=== PATIENT | male | born 1960 | race Hispanic/Latino ===

== ENCOUNTER → 2023-09-08 | Outpatient (CLI) | payer BC | END | disposition home or self-care (01) | LOC: SHCH 13:22 | PROVIDERS: ATTEND Internal Medicine Cardiovascular Disease | DX: I51.7 Cardiomegaly (principal); R94.31 Abnormal electrocardiogram [ECG] [EKG] | CPT/HCPCS: 93306 ==

== ENCOUNTER → 2024-09-03 | Outpatient (CLI) | payer BC ==
[~2024-09-03] MED LIST: ASPI-1443 PO; DULA1.5P SQ; EVOL140P3 SQ; METF-446 PO; METO-408 PO; ROSU40 PO; metoPROLOL tartRATE 1 MG/ML 5ML VIAL IV ONE
--- NOTE | 2024-09-03 14:18 | HMCIMG ---
CT CARDIAC ANGIO W/CONT. CCTA HISTORY: Chest pain COMPARISON: None TECHNIQUE: Multiple sequential axial images of the chest were obtained along with the CT angiogram of the chest study. Patient was given 100 cc of Omnipaque through intravenous route. FINDINGS: There is no evidence of pulmonary nodule or parenchymal disease. No pleural effusion or pericardial effusion is seen. There is no evidence of pneumothorax. There are normal size mediastinal and hilar lymph nodes. The heart is not enlarged. Degenerative changes of the thoracolumbar spine are present. IMPRESSION: 1. No evidence of pulmonary nodule or effusion is seen. Please see CT angiogram report of coronary arteries.
--- NOTE | 2024-09-05 08:27 | CARDIOLOGY ---
RAD REPORT: [facility] CT ANGIO RADIOLOGY REPORT: CORONARY CT ANGIOGRAPHY DATE: Sep 03, 2024 QUALITY: Excellent CLINICAL HISTORY AND INDICATION: [Elevated CACs 1,577 ] TECHNIQUE: After obtaining a preliminary district scout executive image, contrast imaging performed on an [employer] [id number] scanner. A dedicated, limited window, coronary imaging protocol was used, with single breath-hold, retrospective ECG gating, and automated arrhythmia rejection. 100 cc of low osmolar contrast agent: Omnipaque 350 was delivered via a 18-gauge IV catheter in the right antecubital fossa, using a power injector and followed by 60 cc of normal saline bolus as a chaser. Collimated images were reformatted at 0.5 mm intervals, and sent to an offline independent workstation for interpretation, using 3D anatomic reconstructions: Curved multiplanar reconstructions, maximum intensity projections, and multiplanar imaging. 20 mg IV metoprolol was administered prior to scanning. 0.8 mg SL nitroglycerin was given. CORONARY ARTERY DESCRIPTIONS: The coronary arteries arise in normal position. Left main coronary artery: Normal caliber vessel that bifurcates into the LAD and LCx. There is mixed calcified and noncalcified plaque in the distal left main with 50-60% stenosis. Left anterior descending coronary artery: Normal caliber vessel and gives rise to diagonal and septal branches. There is mixed calcified and noncalcified plaque in the ostial to mid LAD with 70-80% stenosis. Left circumflex coronary artery: Normal caliber, nondominant and gives rise to a large OM branch. There is mixed calcified and noncalcified plaque in the ostial LCx with 70-80% stenosis. There is calcified plaque in the proximal OM 1 with 20-30% stenosis. Right coronary artery: Large, dominant vessel giving rise to the PL and PDA branches. There is calcified plaque in the ostial RCA with 20-30% stenosis. There is calcified plaque in the proximal RCA with 50-60% stenosis. CAD-RADs: 4B, multivessel obstructive CAD, including distal left main. Thoracic Aorta: Normal diameter. Ruthann Lakhani MD Cardiovascular Disease [facility] RUTHANN LAKHANI MD Sep 05, 2024 08:27
== END | disposition home or self-care (01) ==
LOC: RAH 07-31 08:07
PROVIDERS: ATTEND Internal Medicine Cardiovascular Disease
DX: R07.9 Chest pain, unspecified (principal); M47.815 Spondylosis without myelopathy or radiculopathy, thoracolumbar region
CPT/HCPCS: 75574; J3490

== ENCOUNTER 2024-10-08 06:39 | Day surgery (SDC) | payer BC ==
--- NOTE | 2024-10-05 10:45 | EKG ---
[facility] Test Date: 2024-10-05 Test Time: 10:38:50 Pat Name: SEBASTIAN HOGAN Department: [facility] Room: Gender: M First Officer: [id number] : 1960 Requested By: JEROME CALDWELL Order Number: [id number] Reading MD: Jerome Caldwell Measurements Intervals [place] Rate: 95 P: 73 NE: 145 QRS: 64 QRSD: 76 T: 9 QT: 342 QTc: 432 Interpretive Statements Sinus rhythm Probable left atrial enlargement No previous ECG available for comparison Electronically Signed On 10-07-2024 23:58:30 CDT by Jerome Caldwell Please click the below link to view image of tracing.
[2024-10-05 10:50] LABS: IMMATURE GRANULOCYTE ABSOLUTE 0.02 K/uL (0-1); NUCLEATED RED BLOOD CELLS 0.0 % (0.0-0.19); PLATELET COUNT (AUTO) 215 K/uL (130-400); RED BLOOD CELL COUNT(AUTO) 5.35 MIL/uL (4.50-6.20); RED CELL DISTRIBUTION WIDTH 12.8 % (11.0-15.5); WHITE BLOOD COUNT (AUTO) 7.6 K/uL (4.8-10.8)
[2024-10-05 10:56] LABS: CREATININE 0.9 mg/dL (0.5-1.3); GLOMERULAR FILTR. RATE CALC 95.0 mL/min (>90); GLUCOSE,RANDOM 303.0 mg/dL (70-105); SODIUM SERUM 141.0 mmol/L (136-145); UREA NITROGEN, BLOOD 24.0 mg/dL (7-18)
[2024-10-05 11:00] VITALS: BP 132/66; PULSE 98; RESP 18; TEMP 97.7
[2024-10-05 11:01] LABS: INR 0.97 (0.85-1.15)
--- NOTE | 2024-10-05 12:03 | HMCIMG ---
CHEST 1VW REASON: PRE OP COMPARISON: None. FINDINGS: Single view of the chest was obtained. Lungs are clear. Heart size is normal. There is no pulmonary vascular congestion. Mediastinum and bony thorax appear unremarkable. IMPRESSION: 1. Normal single view chest x-ray.
[2024-10-08] VITALS (10 sets, daily range): BP systolic 101–148; BP diastolic 60–81; PULSE 74–86; RESP 11–17; TEMP 98.1
[~2024-10-08] VITALS: Ht 180.3 cm; Wt 94.9 kg
[~2024-10-08 06:39] MED LIST changes: -metoPROLOL tartRATE 1 MG/ML 5ML VIAL IV ONE
[2024-10-08] MEDS: 0.9%NACL 1000ML 1,000 ML IV SCH (06:43)
[2024-10-08 07:37] LABS: APPEARANCE,URINE CLEAR (CLEAR); GLUCOSE, URINE (UA) >=1000 mg/dL (NEGATIVE); LEUKOCYTE ESTERASE ,URINE NEGATIVE Leu/uL (NEGATIVE); NITRATE,URINE NEGATIVE (NEGATIVE); OCCULT BLOOD,URINE NEGATIVE (NEGATIVE)
[2024-10-08 07:46] LABS: ADD UA MICROSCOPIC YES
[2024-10-08] MEDS ORDERED: LIDOCAINE HCL 400MG/20ML VIAL ONE (09:56)
[2024-10-08] MEDS ORDERED: NITROGLYCERIN 50MG VIAL ONE (09:57)
[2024-10-08] MEDS ORDERED: IOHEXOL 350 MG/ML 100ML INFUS..BTL IV ONE (09:57)
[2024-10-08] MEDS ORDERED: HEParin-NS 1,000 UNIT/500 ML 1,000 ML IV ONE (09:57)
[2024-10-08] MEDS ORDERED: MIDAZOLAM HCL 1 MG/ML 2ML VIAL ONE ×2 (10:31→11:57)
[2024-10-08] MEDS ORDERED: HEParin-NS 1,000 UNIT/500 ML 500 ML IV ONE (11:20)
[2024-10-08] MEDS ORDERED: DEXTROSE 50%-WATER 50 ML DISP.SYRIN IV PRN (13:00)
[2024-10-08] MEDS ORDERED: 0.9%NACL 1000ML 1,000 ML IV SCH (13:00)
[2024-10-08] MEDS ORDERED: GLUCAGON 1MG KIT 1 MG ML IM PRN (13:00)
--- NOTE | 2024-10-08 13:39 | NUR ---
Right Femoral site and Right Radial VASC band site both clean and dry. No sign of bruising, bleeding or hematoma. Educated Patient and on POC and expectations of safety post catherization. Right arm secure on pillow and Right leg straight. Radial and Pedal pulses intact. at bedside appearing supportive. Dr. Caldwell spoke at length to Patient and Family. All questions answered. CD provided to . Heart healthy diet ordered and water provided. NS at 100 mls/hr to patent PIV to left hand. Call light in reach. Reported off in full to oncoming RNPankaj.
--- NOTE | 2024-10-08 15:27 | PRN ---
PROCEDURE NOTE Indications: 1. Chest pain 2. High calcium score (1577) 3. Abnormal coronary CTA done on 09/03/2024 (60% stenosis in the distal left main, 70-80% stenosis in the ostial, proximal, and mid LAD, 70-80% stenosis in the ostial LCX and 50-60% stenosis in the proximal RCA) 4. DM2 5. HTN 6. HLP Procedures: LHC, coronary angiogram, IFR of the LAD, IVUS of the left main Introduction: After informed written consent was obtained, the patient was brought to the Catheterization Lab in the usual fasting state. Following sterile prep and drape, a time out was performed, then moderate sedation was administered, 1mg of Versed and 50mcg of Fentanyl, then 1% Lidocaine was infiltrated into the right wrist. Using a Modified Seldinger technique, a 6Fr Sheath was inserted into the right radial artery. Despite using multiple guides, we were unable to cannulate the left main. So the decision was made to perform the procedure via the right common femoral artery. The patient was readministered 1 mg of Versed and 50mcg of Fentanyl, then 1% lidocaine was infiltrated into the right groin. Using a modified Seldinger technique a 6Fr sheath was inserted into the right common femoral artery. While under fluoroscopic guidance, diagnostic coronary catheters were advanced over a wire into the central circulation where they were aspirated, flushed and placed to pressure monitoring, once the wire was removed. Coronary Angio: The left and right coronary arteries were engaged with appropriate catheters and angiography was performed under continuous pressure monitoring. Left Heart Catheterization: A JR4 catheter was inserted into the LV and the pressure was recorded, then the catheter was removed from the LV. Cardiac Findings: Right dominant system LM: Large caliber vessel with 70% stenosis in the distal left main. The vessel bifurcates into the LAD and LCX. LAD: Medium caliber vessel with diffuse 80% stenosis in the proximal and mid LAD. ALFREDO 3 blood flow. Diagonal 1: Small caliber vessel with mild luminal irregularities Diagonal 2: Medium caliber vessel with 80% stenosis in the ostial segment of the vessel LCx: Medium caliber vessel with 50% stenosis in the ostial LCX. OM1: Small caliber vessel with mild luminal irregularities. OM2: Medium caliber vessel with mild luminal irregularities RCA: Medium caliber vessel with 40% stenosis in the proximal RCA. The rest of the vessel has mild luminal irregularities. RPDA: Small caliber vessel with mild luminal irregularities. RPLV: Small caliber vessel with 30% stenosis in the proximal segment of the vessel LVEDP: 4mmHg Medications given: Versed 3mg, Fentanyl 100mcg, nicardipine 600mcg, nitroglycerin 400mcg, Heparin 8000units Coronary Intervention: Guide catheter: JL 3.5, other guides ([place], XB 3.5, Q3.5) Guidewire: iFR wire After reviewing the above-mentioned findings the decision was made to further evaluate the LAD. A JL 3.5 guide catheter was advanced to the ostium of the left main. We then advanced a IFR wire outside of the guide and normalized the pressures. We then advanced the IFR wire to the distal LAD and performed hemodynamic assessment. The stenosis in the proximal and mid LAD was deemed to be hemodynamically significant, IFR 0.80. We then advanced an IVUS catheter into the proximal LAD and performed IVUS of the proximal LAD, proximal, mid, and distal left main. IVUS revealed diffuse 70% stenosis in the distal left main and significant stenosis in the proximal LAD. The IFR wire and JL 3.5 guide catheter were then removed. The patient tolerated the procedure well and without issue. Complications: None Conscious Sedation Monitoring: Under my direct order and supervision, medication for moderate conscious sedation was administered by the nursing staff and the patients level of con sciousness and physiological status was monitored by an independent trained nurse. Closure of Access Site: After the case completed the sheath was pulled and a 6Fr Angioseal was deployed in the right common femoral artery without complication. Additionally the sheath in the right radial artery was removed and a TR band was applied to the right radial artery without complication. Conclusion: 1. Chest pain, CCS II symptoms 2. 2V + LM CAD (diffuse 80% stenosis in the proximal and mid LAD, 50% stenosis in the ostial LCX, 80% stenosis in the ostial diagonal 2 and 70% stenosis in the distal left main) 3. High calcium score (1577) 4. Abnormal coronary CTA done on 09/03/2024 (60% stenosis in the distal left main, 70-80% stenosis in the ostial, proximal, and mid LAD, 70-80% stenosis in the ostial LCX and 50-60% stenosis in the proximal RCA) 5. DM2 6. HTN 7. HLP Recommendation: 1. Continue goal-directed medical therapy 2. Start NS at 100 mL/hour x3 hours. 3. Please enact TR band removal protocol. 4. Groin precautions 5. 4 hours of bedrest 6. Okay to DC once the TR band removal protocol and bedrest has been complete and the right wrist and right groin are soft, and free of bruising, bleeding, and or hematoma formation. 7. No driving for the next 48 hours. 8. No heavy lifting or strenuous exercise for the next two weeks. 9. We will refer the patient for CABG evaluation as an outpatient 10. Please have the patient follow up with Dr. Caldwell in 1-2 weeks. JEROME CALDWELL MD Oct 08, 2024 15:27
--- NOTE | 2024-10-08 15:30 | NUR ---
vasband removed at this time, site clean, dry and intact, with no bleeding noted to site. Site dressed with sterile 2x2 gauze, tegaderm and coban dressing.
== END 2024-10-08 16:40 | disposition home or self-care (01) ==
LOC: DAH 06:39
PROVIDERS: ATTEND Internal Medicine Cardiovascular Disease
DX: R07.9 Chest pain, unspecified (principal); I25.118 Atherosclerotic heart disease of native coronary artery with other forms of angina pectoris; I25.84 Coronary atherosclerosis due to calcified coronary lesion; R06.09 Other forms of dyspnea; R00.0 Tachycardia, unspecified; R00.1 Bradycardia, unspecified; R93.1 Abnormal findings on diagnostic imaging of heart and coronary circulation; I10 Essential (primary) hypertension; E11.9 Type 2 diabetes mellitus without complications; E78.5 Hyperlipidemia, unspecified; Z79.82 Long term (current) use of aspirin; Z79.84 Long term (current) use of oral hypoglycemic drugs; Z79.899 Other long term (current) drug therapy
CPT/HCPCS: 80048; 83880; 85025; 85610; 85730; 36415; 71045; 93005; 93458; 92978; 92979; 93571; 85347 ×3; 82948 ×2; 81001; 99156; 99157 ×5; C1769 ×2; C1887 ×4; C1894 ×3; C1760; A4649; C1753; J3010 ×2; J3490 ×3; J1644 ×3; J2250 ×2; Q9967; A4215; A4222; A4221; A4663; A4606; Q9965 ×2; A4223 ×3; 96360; 96361

== ENCOUNTER → 2024-12-20 | Outpatient (CLI) | payer BC ==
--- NOTE | 2024-12-20 16:32 | HMCSR ---
APPROVED REPORT EXAM: Two-dimensional and M-mode echocardiogram with Doppler and color Doppler. INDICATION ICD: I25.10 Atherosclerotic heart disease of [place] coronary artery without angina pectoris 2D Dimensions RVDd3.6 cmLVEF(%)67.9 (>50%)LVED Vol(simp.)103.0 mL IVSd0.9 (0.7-1.1cm)FS(%)37 %LVES Vol(simp.)47.0 mL LVDd3.8 (3.8-5.6cm)LA (2D)3.9 (1.6-4.0cm)LVEF(%, simp.)54 % PWd0.9 (0.7-1.1cm)Ao Root(2D)3.2 (2.0-3.7cm)LA ESV INDEX (BP)20.52 mL/m2 LVDs2.4 (2.5-4.0cm)LVOT diam2.4 (1.8-2.4cm) IVC diam1.7 cm M-Mode Dimensions EPSS0.9 cm LA (MM)4.2 (1.6-4.0cm) Ao Root(MM)3.1 (2.0-3.7cm) Aortic Valve AoV Vmax0.9 m/Joseph Peak GR3.5 mmHgLVOT Vmax0.9 m/s AoV VTI0.2 mAo Mean GR2.3 mmHgLVOT VTI0.18 m YVES (VMAX)4.07 cm2AVA (VTI) 4.1 cm2 Mitral Valve MV E Vmax52.9 cm/sDECEL Erga758 ms MV A Vmax60.8 cm/sP 1/2 T67 ms E/A ratio0.9MVA (PHT)3.3 cm2 TDI E/E' Hdtstb06.1E/E' Lateral5.9 Medial E' Peak V4.76 cm/sLateral E' Peak V8.94 cm/s Pulmonary Valve PV Vmax1.2 m/sPV VTI0.22 mPV Mean GR3.0 mmHg PV Peak GR5.5 mmHg Tricuspid Valve RAP (EST) 8 mmHgRVSP8.0 mmHg Left Ventricle The left ventricle is normal size. There is normal LV segmental wall motion. There is normal left jacob tricular wall thickness. The LVEF is > 55%. The left ventricular diastolic function is normal. Right Ventricle The right ventricle is normal size. The right ventricular systolic function is normal. Atria The left atrium size is normal. The right atrium size is normal. Aortic Valve The aortic valve is normal in structure. No aortic regurgitation is present. There is no aortic valvu lar stenosis. Mitral Valve The mitral valve is normal in structure. There is no mitral valve regurgitation noted. There is no mi tral valve stenosis. Tricuspid Valve The tricuspid valve is normal in structure. There is no tricuspid valve regurgitation noted. Pulmonic Valve The pulmonary valve is normal in structure. There is no pulmonic valvular regurgitation. Great Vessels The aortic root is normal in size. The IVC is normal in size and collapses <50% with inspiration. Pericardium There is trace of pericardial effusion. Other Information Quality : AdequateRhythm : NSR Conclusion The LVEF is > 55%. There is normal LV segmental wall motion. The left ventricular diastolic function is normal. No significant valvular abnormalities
== END | disposition home or self-care (01) ==
LOC: RAH 11:40
PROVIDERS: ATTEND Internal Medicine
DX: I25.10 Atherosclerotic heart disease of native coronary artery without angina pectoris (principal)
CPT/HCPCS: 93306